=== PATIENT | male | born 1980 | race African-American/Black ===

== ENCOUNTER 2021-03-13 07:55 | Emergency (ER) | payer OTHER ==
[~2021-03-13] VITALS: Ht 180.3 cm; Wt 77.4 kg
--- NOTE | 2021-03-13 09:00 | NUR ---
WALKED BACK TO ROOM.
[2021-03-13] MEDS ORDERED: KETOROLAC 30 MG/1 ML ONE (09:48)
[2021-03-13] MEDS ORDERED: ONDANSETRON 2MG/ML, 2ML ONE (09:49)
[2021-03-13] MEDS ORDERED: ONDANSETRON 2MG/ML, 2ML IVPush ONE (10:00)
[2021-03-13] MEDS ORDERED: SODIUM CHLORIDE FLUSH 10ML SYR IVF ONE (10:00)
[2021-03-13] MEDS ORDERED: PLEASE ENTER ALLERGIES MC SCH (10:00)
[2021-03-13] MEDS ORDERED: KETOROLAC 30 MG/1 ML IVPush ONE (10:00)
[2021-03-13] MEDS ORDERED: SODIUM CHLORIDE 0.9% 1,000ML IVBOLUS ONE (10:00)
--- NOTE | 2021-03-13 10:04 | NUR ---
LABS/IVF/COVID SWAB BY PROVIDER, MEDS PER MAR, PT RESTING NAD CALL BRANDON IN REACH.
[2021-03-13] MEDS ORDERED: ACETAMINOPHEN 500 MG TABLET PO ONE (10:30)
[2021-03-13 10:40] LABS: BASOPHILS % (AUTO) 1 % (0-1); EOSINOPHILS % (AUTO) 0 % (1-7); LYMPHOCYTES % (AUTO) 22 % (22-44); MEAN CORPUSCULAR HEMOGLOBIN 28.6 pg (27.5-34.5); MEAN CORPUSCULAR HGB CONC 33.3 g/dL (33.2-36.2); MEAN PLATELET VOLUME 9.2 fL (7.4-10.4); MONOCYTES % (AUTO) 10 % (2-9); NEUTROPHILS % (AUTO) 68 % (42-75); PLATELET COUNT 146 x10^3/uL (130-400); RED BLOOD COUNT 5.44 x10^6/uL (4.38-5.82); RED CELL DISTRIBUTION WIDTH 13.2 % (9.4-14.8)
[2021-03-13 11:57] LABS: ALANINE AMINOTRANSFERASE 49 U/L (12-78); ALBUMIN 3.2 g/dL (3.4-5.0); ANION GAP 5 mmol/L (5-15); CHLORIDE 110 mmol/L (98-107)
[2021-03-13 11:58] VITALS: BP 132/81
[2021-03-13 11:59] LABS: ALKALINE PHOSPHATASE 51 U/L (45-117); BILIRUBIN,TOTAL 0.4 mg/dL (0.2-1.0); CREATININE 1.05 mg/dL (0.7-1.3); TOTAL PROTEIN 6.3 g/dL (6.4-8.2)
== END 2021-03-13 12:01 | disposition home or self-care (01) ==
LOC: ED 11:45
DX: U07.1 COVID-19 (principal); R50.9 Fever, unspecified; R05 Cough; R51.9 Headache, unspecified; R00.0 Tachycardia, unspecified
CPT/HCPCS: 36415; 80053; 85025; 96361; 96374; 96375; 99284; J1885; J2405; J7030; U0003; U0005

== ENCOUNTER 2021-03-14 04:51 | Emergency (ER) | payer OTHER ==
[~2021-03-14] VITALS: Ht 180.3 cm; Wt 77.0 kg
[2021-03-14 05:01] VITALS: BP 128/74
== END 2021-03-14 06:07 | disposition left against medical advice (07) ==
LOC: ED 06:03
DX: U07.1 COVID-19 (principal); A08.39 Other viral enteritis; J06.9 Acute upper respiratory infection, unspecified
CPT/HCPCS: 99281